=== PATIENT | male | born 1970 | race Caucasian/White ===

== ENCOUNTER 2024-12-05 14:02 | Outpatient (AMB) | payer OTHER, SELFPAY ==
--- NOTE | 2024-12-05 14:27 | A.OFFPC_ITS ---
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 Intake Note: new patient visit to establish care with pcp Reimbursement Coordinator Required: No Allergies Penicillins Adverse Reaction (Intermediate, Verified 12/05/24 14:35) Rash Medication List - Last Reconciled 12/05/24 by Uday Menendez MD sildenafil (Viagra) 25 mg PO DAILY PRN Tobacco use date assessed: 12/05/24 Dental Screening Dental Screen Date: 12/05/24 Did you have a dental visit in the last 12 months?: Yes Did you have a dental problem in the last 6 months where you did not have access to dental care?: Yes Was dental information given to patient?: No HPI 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 ?? Prior PCP:? Shanika Barry. Last office visit/CPE:? 1 yr Acute issue(s):? Kidney Stones - was at [facility] today for kiney stones. Urology Dr Manuel. ?? PMHx:? 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 SurgHx:?Gall Bladder, Urology laser & Basket for ureteral stones & history of stent FHx:?Mom: Kidney Stone, Crohns. Dad: afib, Ulcerative Colitis SocHx: Vapes, EtOH weekends 3-5 drinks. No Drugs. 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 1. Little interest or pleasure in doing things: not at all 2. Feeling down, depressed, or hopeless: not at all 3. Trouble falling or staying asleep, or sleeping too much: not at all 4. Feeling tired or having little energy: not at all 5. Poor appetite or overeating: not at all 6. Feeling bad about yourself - or that you are a failure or have let yourself or your family down: not at all 7. Trouble concentrating on things, such as reading the newspaper or watching television: not at all 8. Moving or speaking so slowly that other people could have noticed. Or the opposite - being so fidgety or restless that you have been moving around a lot more than usual: not at all 9. Thoughts that you would be better off or of hurting yourself in some way: not at all Total score: 0 Depression Screening Interpretation: Negative Depression Screening Done: Yes 20677 - PHQ-9 Billing: Yes Source: Developed by Drs. Bharat Delcid, Jaqueline Vasquez, Jeferson Malcolm and colleagues, with an educational jai from [employer]. Thrive Questionnaire Date Thrive assessed: 12/05/24 I am a: Patient What is your living situation today?: I have a steady place to live Within the past 12 months, did the food you bought not last and you didn't have the money to get more?: Never true Within the past 12 months, did you worry whether your food would run out before you got money to buy more?: Never true Do you have trouble paying for medicines?: No Do you have trouble getting transportation to medical appointments?: No Do you have trouble paying your heating and electricity bill?: No Do you have trouble taking care of your child, family member or friend?: No Do you have trouble with day-to-day activities such as bathing, preparing meals, shopping, managing finances, etc.?: No Are you currently unemployed and looking for a job?: No Are you interested in more education?: No Please select the resources that you would like help with: None Currently or been in a relationship where the following occur: No concerns reported THRIVE Score: 0 AUDIT C Alcohol Use Questionnaire (AUDIT-C) 1. How often do you have a drink containing alcohol?: 2-3 times a week 2. How many drinks containing alcohol do you have on a typical day when you are drinking?: 3 or 4 3. How often do you have six or more drinks on one occasion?: Less than monthly Total Score: 5 Score Reviewed/Action Taken: Yes CHAS-7 AMB Questionnaire CHAS-7 Date CHAS - 7 assessed: 12/05/24 Feeling nervous, anxious, or on edge: 0 = Not at all Not being able to stop or control worryin = Not at all Worrying too much about different things: 0 = Not at all Trouble relaxin = Not at all Being so restless that it is hard to sit still: 0 = Not at all Becoming easily annoyed or irritable: 0 = Not at all Feeling afraid as if something awful might happen: 0 = Not at all Total CHAS-7 score (0-4 normal; 5-9 mild; 10-14 moderate; 15-21 severe): 0 Source: Developed by Drs. Bharat Delcid, Jaqueline Vasquez, Jeferson Malcolm and colleagues, with an educational jai from [employer]. CHAS-7 Assessment Billing CHAS-7 Assessment Tool: CHAS-7 Assessment 73130 Review of Systems Const Denies chills, Denies fatigue, Denies fever(s), Denies headache(s) and Denies weakness ENT Denies dizziness and Denies headache(s) Card Denies chest pain, Denies lightheadedness, Denies dyspnea and Denies other (Palpitations) Resp Denies cough, Denies dyspnea, Denies wheezing and Denies other ( shortness of breath) Musc Denies numbness and Denies tingling Neuro Denies dizziness, Denies headache(s), Denies numbness, Denies tingling, Denies paresthesias and Denies weakness Psych Denies anxiety and Denies depression Endo Denies fatigue Aller/Immun Denies wheezing Physical exam (Primary Care) Vital Signs: Last Vital Signs Temp 98.1 F 12/05/24 14:39 Pulse 109 H 12/05/24 14:39 Resp 14 12/05/24 14:39 BP 136/90 H 12/05/24 14:39 Pulse Ox 95 12/05/24 14:39 Oxygen Delivery Method Room Air 12/05/24 14:39 BMI result Body Mass Index 39.5 Tobacco/Smoking Status: Tobacco use Status Tobacco use date assessed 12/05/24 12/05/24 14:40 Patient Tobacco Use Status Never used Tobacco 12/05/24 14:40 e-Cigarette/Vaping Use Currently Using 12/05/24 14:40 PHQ-9: PHQ-9 Score PHQ-9: Total score 0 12/05/24 14:44 Depression Screening Interpretation: Negative Thrive Assessment: Date of Thrive Assessment Date Thrive assessed 12/05/24 12/05/24 14:40 Currently or been in a relationship where the following occur: No concerns reported Const General: no acute distress and well developed Nutritional Appearance: well nourished Orientation/consciousness: patient oriented x3 HENMT Head: Yes normocephalic and Yes atraumatic Eyes General: appearance normal, both eyes and all related structures Pupils: Equal, round and reactive pupils present EOM: EOMs intact bilaterally Resp Effort & Inspection: normal respiratory effort Auscultation: clear to auscultation bilaterally Cardio Rate: regular rate Rhythm: regular rhythm Heart sounds: S1 normal heart sound present, S2 normal heart sound present, no gallops, no murmurs and no rubs Neuro General: patient oriented x3 and gait normal Cranial nerves: Yes Equal, round and reactive pupils present Psych Affect: normal affect Coding Level of Care Code New Pt Level 3 (80839) Diagnoses History of kidney stones Z87.442 Erectile dysfunction N52.9 Tachycardia R00.0 Laboratory exam ordered as part of routine general medical examination Z00.00 Additional Codes CHAS-7 Assessment Billing - CHAS-7 Assessment Tool: CHAS-7 Assessment 28919 ([id number]) PHQ-9 - 96876 - PHQ-9 Billing: Yes ([id number]) Assessment & Plan Assessment & Plan (1) History of kidney stones: Code(s): Z87.442 - Personal history of urinary calculi Category: Medical Plan: Recurrent?kidney?stones. Followed?by? - will?request?most?recent?notes Hydrate?well (2) Erectile dysfunction: Code(s): N52.9 - Male erectile dysfunction, unspecified Category: Medical Plan: Managed?with?sildenafil Continue?current?medication (3) Tachycardia: Code(s): R00.0 - Tachycardia, unspecified Category: Medical Plan: EKG: ?Normal?sinus?rhythm HR 92bpm,?normal?axis,?no?hypertrophy,?no?ST-T-wave?changes Hydrate?well Encouraged?exercise (4) Laboratory exam ordered as part of routine general medical examination: Code(s): Z00.00 - Encounter for general adult medical examination without abnormal findings Category: Medical Plan: Check?labs Orders: Orders Lipid Panel Today Z00.00 - Encounter for general adult medical examination without abnormal findings Prostate Specific Antigen Scr Today Z12.5 - Encounter for screening for malignant neoplasm of prostate TSH reflex Free T4 Today Z00.00 - Encounter for general adult medical examination without abnormal findings Comprehensive [place]. Panel Fast Today Z00.00 - Encounter for general adult medical examination without abnormal findings Microalbumin, Random (w Creat) Today I10 - Essential (primary) hypertension UA CC w/rflx Micro + Cult Today Z00.00 - Encounter for general adult medical examination without abnormal findings AMB EKG-In Office Today R00.0 - Tachycardia, unspecified
[2024-12-05 14:39] VITALS: BP 136/90; PULSE 109; RESP 14; TEMP 36.7; O2SAT 95; BMI 39.5
[2024-12-05 14:49] VITALS: BP 126/80; PULSE 102
--- OUTSIDE RECORDS SUMMARY | 2024-12-05 16:47 | XMS_ITS | Clinical Summary ---
[email or web address] [place] [address] Care Team Providers Care Cuff Matcher Name Role Phone Eduardo Barry Primary Care Provider [phone] Surgical History Surgery Date Site/Laterality Comments HAND SURGERY PROCEDURE: HISTORICAL HAND SURGERY; COMMENT: age 3, left hand missing metacarpal ANKLE SURGERY PROCEDURE: HISTORICAL ANKLE SURGERY; COMMENT: age 16 yr, right ankle screws ANKLE SURGERY PROCEDURE: HISTORICAL ANKLE SURGERY; COMMENT: age 27 yr, repeat ankle srugery OTHER SURGICAL HISTORY PROCEDURE: [place] INCISION & DRAINAGE PILONIDAL CYST COMPLICATED; COMMENT: age 18 yr MOUTH SURGERY PROCEDURE: ORAL SURGERY PROCEDURE; COMMENT: capo COLONOSCOPY 06/04/2019 PROCEDURE: HISTORICAL COLONOSCOPY; COMMENT: Solitary 3 mm erosion in the terminal ileum, otherwise completely normal, no evidence of active or old inflammatory bowel disease. UPPER GASTROINTESTINAL ENDOSCOPY 06/04/2019 PROCEDURE: [place] UPPER GI ENDOSCOPY PERFORMED; COMMENT: Normal. CHOLECYSTECTOMY 07/29/2020 PROCEDURE: [place] LAPAROSCOPY SURG CHOLECYSTECTOMY Medical History Medical History Date Comments Calculus of kidney 10/28/2006 DX:Calculus o f kidney Headache(784.0) 10/28/2006 DX:Headache(784. 0); COMMENT: negative CAT scan 1989 Sensorineural hearing loss ( SNHL) of both ears 04/02/2021 DX:Sensorineural hearing los s (SNHL) of both ears; COMMENT: Seen by Dr. Henderson - close monitoring for now Family History Medical History Relation Name Comments Arthritis Daughter RA Asthma Daughter Other: Afib Father Ulcerative colitis Father Breast cancer Maternal Grandmother Crohn's disease Mother Nephrolithiasis Mother Other: aneurysm Mother aortic Stroke Paternal Grandfather Stroke Paternal Grandmother No Known Problems Sister Ulcerative colitis Son Dharmesh Relation Name Status Comments Daughter Alive Father Alive Maternal Grandfather Maternal Grandmother (Age 83) Mother Alive Paternal Grandfather Paternal Grandmother (Age 83) Sister Alive Son Dharmesh Alive Social History Tobacco Use Types Packs/Day Years Used Date Smoking Tobacco: Former Cigarettes Q uit: 05/20/2016 Smokeless Tobacco: Never Alcohol Use Standard Drinks/Week Comments Yes 0 (1 standard drink = 0.6 oz pur e alcohol) Sex and Gender Information Value Date Recorded Sex Assigned at Not on file Legal Sex Male 2:26 PM EST Gender Identity Not on file Sexual Orientation Not on file Obstetrics History Last Filed Vital Signs Vital Sign Reading Time Taken Comments Blood Pressure 138/88 07/29/2023 4:57 PM EST L A rm Pulse 90 07/29/2023 4:57 PM EST Temperature - - Respiratory Rate - - Oxygen Saturation - - Inhaled Oxygen Concentration - - Weight 125 kg (275 lb 6.4 oz) 06/02/2023 8:08 AM EDT Height 172.7 cm (5' 8 ) 06/02/2023 8:08 AM EDT Body Mass Index 41.87 06/02/2023 8:08 AM EDT Plan of Treatment Health Maintenance Due Date Last Done Comments Hepatitis A Vaccines (1 of 2 - Risk 2-dose series) 1988 Hepatitis B Vaccines (1 of 3 - 19+ 3-dose series) 1988 Pneumococcal Vaccine: 50+ Years (1 of 1 - PCV) 2019 Zoster Vaccines (1 of 2) 2019 Cholesterol Screening (Lipid Panel) 07/31/2022 Colorectal Cancer Screening: Colonoscopy 07/31/2022 Depression Screening 07/31/2022 HIV Screening 07/31/2022 Hepatitis C Screening 07/31/2022 Social Influencers of Health Screening 07/31/2022 COVID-19 Vaccine (3 - 2023-2 5 season) 2024 10/22/2020, 10/01/2020 Influenza Vaccine (Season Ended) 2025 05/16/2020, 06/30/2019, 08/30/2018 DTaP,Tdap,and Td Vaccines (3 - Td or Tdap) 03/17/2031 03/17/2021, 01/13/2010 HIB Vaccines Aged Out No longer eligi ble based on patient's age to complete this topic HPV Vaccines Aged Out No longer eligi ble based on patient's age to complete this topic IPV Vaccines Aged Out No longer eligi ble based on patient's age to complete this topic MMR Vaccines Aged Out No longer eligi ble based on patient's age to complete this topic Meningococcal ACWY Vaccine Aged Out N o longer eligible based on patient's age to complete this topic Meningococcal B Vaccine Aged Out No l onger eligible based on patient's age to complete this topic Pneumococcal Vaccine: Pediatrics (0 to 5 Years) and At-Risk Patients (6 to 64 Years) Aged Out No longer eligible b ased on patient's age to complete this topic RSV Immunization Patients Under 20 months Aged Out No longer eligible b ased on patient's age to complete this topic Varicella Vaccines Aged Out No longer eligible based on patient's age to complete this topic Care Teams Cuff Matcher Relationship Specialty Start Date End Date Eduardo Barry DO PCP - General Internal Medicine 07/30/21
== END 2024-12-05 15:27 | disposition home or self-care (01) ==
LOC: HO.HMCFM 14:02
PROVIDERS: PCP Family Medicine; Visit Provider Family Medicine
DX: Z87.442 Personal history of urinary calculi (principal); N52.9 Male erectile dysfunction, unspecified; R00.0 Tachycardia, unspecified; Z00.00 Encounter for general adult medical examination without abnormal findings

== ENCOUNTER → 2024-12-05 14:02 | Outpatient (BNVA) | payer OTHER, SELFPAY | PROVIDERS: PCP Family Medicine; Visit Provider Family Medicine | DX: N52.9 Male erectile dysfunction, unspecified (principal); R00.0 Tachycardia, unspecified; Z87.442 Personal history of urinary calculi; Z79.899 Other long term (current) drug therapy | CPT/HCPCS: 96127 ==

== ENCOUNTER 2025-03-07 07:38 | Outpatient (REF) | payer OTHER, SELFPAY ==
--- OUTSIDE RECORDS SUMMARY | 2025-03-07 07:40 | XMS_ITS | Clinical Summary ---
[facility] [place] [address] Care Team Providers Care Bottle Tester Name Role Phone Eduardo Barry Primary Care Provider [phone] Surgical History Surgery Date Site/Laterality Comments HAND SURGERY PROCEDURE: HISTORICAL HAND SURGERY; COMMENT: age 3, left hand missing metacarpal ANKLE SURGERY PROCEDURE: HISTORICAL ANKLE SURGERY; COMMENT: age 16 yr, right ankle screws ANKLE SURGERY PROCEDURE: HISTORICAL ANKLE SURGERY; COMMENT: age 27 yr, repeat ankle srugery OTHER SURGICAL HISTORY PROCEDURE: [place] INCISION & DRAINAGE PILONIDAL CYST COMPLICATED; COMMENT: age 18 yr MOUTH SURGERY PROCEDURE: ORAL SURGERY PROCEDURE; COMMENT: capo COLONOSCOPY 06/04/2019 PROCEDURE: HISTORICAL COLONOSCOPY; COMMENT: Solitary 3 mm erosion in the terminal ileum, otherwise completely normal, no evidence of active or old inflammatory bowel disease. UPPER GASTROINTESTINAL ENDOSCOPY 06/04/2019 PROCEDURE: MD UPPER GI ENDOSCOPY PERFORMED; COMMENT: Normal. CHOLECYSTECTOMY 07/29/2020 PROCEDURE: MD LAPAROSCOPY SURG CHOLECYSTECTOMY Medical History Medical History [...] 5 season) 2024 10/22/2020, 10/01/2020 Influenza Vaccine (#1) 2025 , 06/30/2019, 08/30/2018 DTaP,Tdap,and Td Vaccines (3 - [...] age to complete this topic Care Teams Bottle Tester Relationship Specialty Start Date End Date Eduardo Barry DO PCP - General Internal Medicine 07/30/21
[2025-03-07 11:32] LABS: Alanine Aminotransferase 29 U/L (0-40); Albumin Level 4.3 g/dL (3.5-5.0); Alkaline Phosphatase 62 U/L (39-117); Anion Gap 11 (12-20); Aspartate Amino Transferase 24 U/L (5-37); Blood Urea Nitrogen 13 mg/dL (9-16); Calcium 8.9 mg/dL (8.4-10.2); Carbon Dioxide 25 mmol/L (22-29); Chloride 109 mmol/L (96-108); Cholesterol 158 mg/dL (<200); Estimated Glomerular Filt Rate > 60; HDL Cholesterol 35 mg/dL (>40); Potassium 3.9 mmol/L (3.3-5.1); Sodium 141 mmol/L (135-145); Total Protein 6.4 g/dL (6.5-8.0); Triglycerides 189 mg/dL (<150)
[2025-03-07 11:52] LABS: Appearance Urine Clear; Glucose Urine UA Negative (Negative); PH 6.5 (5.0-9.0); Specific Gravity - Urine 1.025 (1.005-1.025)
[2025-03-07 12:06] LABS: Microalbum/Creatinine Ratio Ur 5.9 ug/mg cr (<30)
== END 2025-03-07 07:39 | disposition home or self-care (01) ==
LOC: HO.WFDLDS 07:38
PROVIDERS: Visit Provider Family Medicine
DX: Z00.00 Encounter for general adult medical examination without abnormal findings (principal); Z12.5 Encounter for screening for malignant neoplasm of prostate; I10 Essential (primary) hypertension
CPT/HCPCS: 36415; 80053; 80061; 81003; 82043; 82570; 84153; 84443

== ENCOUNTER 2025-04-15 13:50 | Outpatient (AMB) | payer OTHER, SELFPAY ==
--- NOTE | 2025-04-15 14:01 | A.OFFPC_ITS ---
Vital Signs 04/15/25 14:02 Height 5 ft 8 in Weight 251 lb 2 oz BMI 38.2 BP 138/90 H Blood Pressure Location Rt brachial Position Sitting Pulse 106 H Pulse Source Pulse Oximeter Pulse Oximetry (%) 96 Oxygen Delivery Method Room Air Intake Visit Reasons: CPE with f/u labs and health maint. Allergies Penicillins Adverse Reaction (Intermediate, Verified 04/15/25 14:06) Rash Medication List - Last Reconciled 04/15/25 by Uday Menendez MD sildenafil (Viagra) 25 mg PO DAILY PRN Tobacco use date assessed: 04/15/25 Dental Screening Dental Screen Date: 04/15/25 Did you have a dental visit in the last 12 months?: Yes Did you have a dental problem in the last 6 months where you did not have access to dental care?: No Was dental information given to patient?: Patient has dentist HPI CPE with f/u labs and health maint. HPI Details 54 y/o male presents for a CPE with f/u labs and health maint. Labs drawn 03/07/25. Reviewed labs with pt. Fasting glucose 151. Triglycerides 189. TC 158. LDL 86. HDL low at 35. PSA 1.29. A1c today 7.4%. No prior diagnosis of diabetes. Hx of gallstone pancreatitis, cholelithiasis. 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 1. Little interest or pleasure in doing things: not at all 2. Feeling down, depressed, or hopeless: not at all 3. Trouble falling or staying asleep, or sleeping too much: not at all 4. Feeling tired or having little energy: not at all 5. Poor appetite or overeating: not at all 6. Feeling bad about yourself - or that you are a failure or have let yourself or your family down: not at all 7. Trouble concentrating on things, such as reading the newspaper or watching television: not at all 8. Moving or speaking so slowly that other people could have noticed. Or the opposite - being so fidgety or restless that you have been moving around a lot more than usual: not at all 9. Thoughts that you would be better off or of hurting yourself in some way: not at all Total score: 0 Depression Screening Interpretation: Negative Depression Screening Done: Yes Source: Developed by Drs. Bharat Delcid, Jaqueline Vasquez, Jeferson Malcolm and colleagues, with an educational jai from [employer]. Thrive Questionnaire Date Thrive assessed: 11/28/24 I am a: Patient What is your living situation today?: I have a steady place to live Within the past 12 months, did the food you bought not last and you didn't have the money to get more?: Never true Within the past 12 months, did you worry whether your food would run out before you got money to buy more?: Never true Do you have trouble paying for medicines?: No Do you have trouble getting transportation to medical appointments?: No Do you have trouble paying your heating and electricity bill?: No Do you have trouble taking care of your child, family member or friend?: No Do you have trouble with day-to-day activities such as bathing, preparing meals, shopping, managing finances, etc.?: No Are you currently unemployed and looking for a job?: No Are you interested in more education?: No Please select the resources that you would like help with: None Currently or been in a relationship where the following occur: No concerns reported THRIVE Score: 0 AUDIT C Alcohol Use Questionnaire (AUDIT-C) 1. How often do you have a drink containing alcohol?: 2-3 times a week 2. How many drinks containing alcohol do you have on a typical day when you are drinking?: 3 or 4 3. How often do you have six or more drinks on one occasion?: Less than monthly Total Score: 5 CHAS-7 AMB Questionnaire CHAS-7 Date CHAS - 7 assessed: 12/05/24 Feeling nervous, anxious, or on edge: 0 = Not at all Not being able to stop or control worryin = Not at all Worrying too much about different things: 0 = Not at all Trouble relaxin = Not at all Being so restless that it is hard to sit still: 0 = Not at all Becoming easily annoyed or irritable: 0 = Not at all Feeling afraid as if something awful might happen: 0 = Not at all Total CHAS-7 score (0-4 normal; 5-9 mild; 10-14 moderate; 15-21 severe): 0 Source: Developed by Drs. Bharat Delcid, Jaqueline Vasquez, Jeferson Malcolm and colleagues, with an educational jai from [employer]. Review of Systems Const Denies chills, Denies fatigue, Denies fever(s), Denies headache(s) and Denies weakness Eyes Denies change in vision ENT Denies dizziness, Denies headache(s), Denies hearing loss, Denies nasal congestion, Denies sinus pain, Denies sinus pressure and Denies sore throat Card Denies chest pain, Denies lightheadedness, Denies dyspnea and Denies other (palpitations) Resp Denies cough, Denies dyspnea and Denies wheezing GI Denies abdominal pain, Denies melena, Denies hematochezia, Denies change in bowel habits, Denies dyspepsia and Denies nausea Denies hematuria and Denies dysuria Musc Denies abnormal gait, Denies myalgias, Denies arthralgias, Denies numbness and Denies tingling Skin/Breast Denies rash, Denies unusual bruising and Denies wounds Neuro Denies abnormal gait, Denies dizziness, Denies headache(s), Denies memory loss, Denies numbness, Denies Sensory deficit (Neuro), Denies tingling and Denies weakness Psych Denies anxiety, Denies depression and Denies memory loss Endo Denies cold intolerance, Denies fatigue, Denies heat intolerance, Denies polydipsia and Denies polyuria Dennis/Lymph Denies easy bleeding and Denies easy bruising Aller/Immun Denies wheezing Physical exam (Primary Care) Vital Signs: Last Vital Signs Pulse 106 H 04/15/25 14:02 BP 138/90 H 04/15/25 14:02 Pulse Ox 96 04/15/25 14:02 Oxygen Delivery Method Room Air 04/15/25 14:02 BMI result Body Mass Index 38.2 Tobacco/Smoking Status: Tobacco use Status Tobacco use date assessed 04/15/25 04/15/25 14:08 Patient Tobacco Use Status Never used Tobacco 04/15/25 14:08 e-Cigarette/Vaping Use Currently Using 04/15/25 14:08 PHQ-9: PHQ-9 Score PHQ-9: Total score 0 04/15/25 14:52 Depression Screening Interpretation: Negative Thrive Assessment: Date of Thrive Assessment Date Thrive assessed 11/28/24 04/15/25 14:08 Currently or been in a relationship where the following occur: No concerns reported Const General: no acute distress, well developed, alert and awake Nutritional Appearance: well nourished Orientation/consciousness: patient oriented x3 HENMT Head: Yes normocephalic and Yes atraumatic Ears: hearing grossly normal bilaterally and TM's normal bilaterally General nose exam: Normal external nose present and Normal nares present Mouth: Normal oral and palatal mucosa present and moist mucous membranes Teeth and gingiva: dentition normal Throat: Yes posterior oropharynx normal Eyes General: appearance normal, both eyes and all related structures Pupils: Equal, round and reactive pupils present and Pupil accommodation reflex normal EOM: EOMs intact bilaterally Neck Neck: Yes normal visual inspection, Yes no lymphadenopathy and Yes trachea midline Thyroid: Thyroid normal Carotids: no bruits Lymphatic: no lymphadenopathy noted Chest Chest palpation & inspection: normal inspection of the chest Resp Effort & Inspection: normal respiratory effort Auscultation: clear to auscultation bilaterally Cardio Rate: regular rate Rhythm: regular rhythm Heart sounds: S1 normal heart sound present, S2 normal heart sound present, no gallops, no murmurs and no rubs Bruits: no abdominal aortic bruits and no carotid bruits GI Palpation (GI): No Abdominal aortic bruit present, Soft to palpation, nontender, No hepatosplenomegaly present and No Rebound tenderness present Auscultation: normal bowel sounds General: Yes no CVA tenderness Back/Spine/Pelvis Back: no CVA tenderness Cervical Spine: cervical ROM normal and No Cervical spine tenderness Thoracic/Lumbar Spine: thoraco-lumbar ROM normal, No pain with thoraco-lumbar ROM, No thoracic spinal tenderness and No lumbar spinal tenderness Skin Lesions: no lesions Rashes: no rashes Trauma: no lacerations or abrasions Wounds: no wounds Nails: normal Neuro General: patient oriented x3 Cranial nerves: Yes Equal, round and reactive pupils present Cognition (Neuro): normal cognition Gait exam (Neuro): Normal gait present Motor exam (neuro): 5/5 motor strength present throughout Sensory Exam: No Sensory deficit (Neuro) Deep tendon reflexes (DTR's): Right patellar reflex intensity grade: 2+ and Left patellar reflex intensity grade: 2+ Extrem General: Yes normal to inspection and No edema Psych Appearance: grossly normal Affect: normal affect Attitude: cooperative Thought process: Normal thought process present Results AMB Hemoglobin A1c AMB Hemoglobin A1c 7.4 % Last Edit by Qian Lake CMA on 04/15/25 15:00 Coding Level of Care Code Est Pt Level 3 (03292) Est Pt Prev Care 40-64y(59440) Diagnoses Adult general medical exam Z00.00 Low HDL (under 40) E78.6 Diabetes E11.9 Screening for colon cancer Z12.11 Screening for prostate cancer Z12.5 Assessment & Plan Assessment & Plan (1) Adult general medical exam: Code(s): Z00.00 - Encounter for general adult medical examination without abnormal findings Category: Medical Plan: 54-year-old man presents for complete physical exam Encouraged healthy diet with active lifestyle and plenty of exercise (2) Low HDL (under 40): Code(s): E78.6 - Lipoprotein deficiency Category: Medical Plan: Encouraged increased exercise (3) Diabetes: Code(s): E11.9 - Type 2 diabetes mellitus without complications Category: Medical Plan: New diagnosis of diabetes. Patient has a history of cholelithiasis and gallstone pancreatitis Start metformin Watch sugars and starches in diet-will refer to nurse navigator for diabetic teaching Will recheck A1c at next visit Referred to ophthalmology (4) Screening for colon cancer: Code(s): Z12.11 - Encounter for screening for malignant neoplasm of colon Category: Medical Plan: Patient says he had a colonoscopy recently with [facility] and was told to follow-up in 10 years Will request report (5) Screening for prostate cancer: Code(s): Z12.5 - Encounter for screening for malignant neoplasm of prostate Category: Medical Plan: PSA is within Normal range Will continue annual screening Orders: Orders AMB Hemoglobin A1c Today Z13.9 - Encounter for screening, unspecified Comprehensive [place]. Panel Fast Today Z00.00 - Encounter for general adult medical examination without abnormal findings Lipid Panel Today Z00.00 - Encounter for general adult medical examination without abnormal findings Hemoglobin A1c Today R73.01 - Impaired fasting glucose Referrals Ophthalmology Referral E11.9 - Type 2 diabetes mellitus without complications Nurse Navigator Referral E11.9 - Type 2 diabetes mellitus without complications Medications: New metformin 500 mg PO DAILY 90 tabs 2RF 90 days
[2025-04-15 14:02] VITALS: BP 138/90; PULSE 106; O2SAT 96; BMI 38.2
--- OUTSIDE RECORDS SUMMARY | 2025-04-15 15:11 | XMS_ITS | Clinical Summary ---
Author Organization [facility] Address [address] [place] [address] Phone Care Team Providers Care Cardiac Cath Technician Name Role Phone Pcp, Unknown Primary Care Provider Unavailabl e Allergies Active Allergy Reactions Criticality Noted Date Comments Penicillins Rash Low 08/31/2024 Medications tamsulosin (FLOMAX) 0.4 mg Cap Take 0.4 mg by mouth nightly at bedtime. 4 Active sulfamethoxazol e-trimethoprim (BACTRIM DS) 800-160 mg per tablet Take 1 tablet by mouth 2 (two) times a day. 4 Active phenazopyridine (PYRIDIUM) 200 MG tablet TAKE 1 TABLET BY MOUTH 3 TIMES A DAY NEEDED FOR DYSURIA 4 Active oxyCODONE 5 MG immediate release tablet Take 5 mg by mouth every 6 (six) hours as needed. 4 Active oxyBUTYnin (DITROPAN) 5 MG tablet TAKE ONE TABLET 3 TIMES A DAY NEEDED FOR MUSCLE SPASMS 4 Active fluticasone propionate (FLONASE) 50 mcg/actuation nasal spray 1 spray by Nasal route daily. Active sildenafil citrate (VIAGRA ORAL) Take by mouth. Activ e methylPREDNISol one (MEDROL DOSEPACK) 4 mg tablet follow package directions 21 tablet 5 Active Active Problems No known active problems Social History Tobacco Use Types Packs/Day Years Used Date Smoking Tobacco: Former Cigarettes Smokeless Tobacco: Never Tobacco Cessation:Counseling Given: Not Answered Education Answer Date Recorded Are you interested in more education? Not on yoselyn e 12/18/2022 Are you concerned about learning? Not on file 12/18/2022 No 12/18/2022 No 12/18/2022 Digital Access Answer Date Recorded No 01/16/2023 No 01/16/2023 Reliable internet access at home? Not on file 01/16/2023 Device with a working camera? Not on file Sex and Gender Information Value Date Recorded Sex Assigned at Not on file Legal Sex Male 2:02 PM EDT Gender Identity Not on file Sexual Orientation Not on file Last Filed Vital Signs Vital Sign Reading Time Taken Comments Blood Pressure 132/91 08/31/2024 12:09 PM EST Pulse 86 08/31/2024 12:09 PM EST Temperature 36.6 C (97.9 F) 08/31/2024 12:09 PM EST Respiratory Rate 20 08/31/2024 12:09 PM EST Oxygen Saturation 98% 08/31/2024 12:09 PM EST Inhaled Oxygen Concentration - - Weight - - Height - - Body Mass Index - - Plan of Treatment Health Maintenance Due Date Last Done Comments LIPID PANEL 1969 DEPRESSION SCREENING 1981 SMOKING Hx and SMOKELESS TOBACCO SCREENING 1982 HEPATITIS C SCREENING 1987 HIV ONE-TIME SCREENING (18-6 5 YEARS) 1987 COLOGUARD 2014 COLONOSCOPY 2014 COLORECTAL CANCER SCREENING 2014 FIT TEST 2014 FOBT 2014 SIGMOIDOSCOPY 2014 VIRTUAL COLONOSCOPY 2014 PNEUMOCOCCAL VACCINES (50+ years) (1 of 1 - PCV) 2019 ZOSTER VACCINES (1 of 2) 2019 COVID-19 VACCINE (3 - 2023-2 5 season) 2024 10/22/2020, 10/01/2020 INFLUENZA VACCINE (#1) 2025 , 06/30/2019, 08/30/2018 Adult Td,Tdap Booster 03/17/2031 03/17/2021 , 01/13/2010 HEPATITIS A VACCINES Aged Out No long er eligible based on patient's age to complete this topic HIB VACCINES Aged Out No longer eligi ble based on patient's age to complete this topic MENINGOCOCCAL VACCINES (ACWY) Aged Out No longer eligible based on patient's age to complete this topic MENINGOCOCCAL VACCINES (B) Aged Out N o longer eligible based on patient's age to complete this topic Medical Devices Not on file Insurance [facility] Address: [address] [facility] POS [facility] Address: [address] [facility] [place] [address] [place] [address] HMO [facility] HMO [facility] HMO [facility] [place] [address] [place] [address] [place], [place] [id number] Member Subscriber Plan / Payer (Ef fective 2021-) Name:Yonatan James Relation to Subscriber:Self Name:Yonatan James Payer ID:Not on file Type:HMO Address: [address] POS HMO Member Subscriber Plan / Payer (Ef fective 2021-Present) Name:Yonatan James Relation to Subscriber:Self Name:Yonatan James Payer ID:Not on file Type:O Address: [address] POS O Member Subscriber Plan / Payer (Ef fective 2021-Present) Name:Yonatan James Relation to Subscriber:Self Name:Yonatan James Payer ID:Not on file Type:O Address: [address] POS Care Teams Cardiac Cath Technician Relationship Specialty Start Date End Date Pcp, Unknown PCP - General 05/27/22 Additional Source Comments The information contained in this document represents components of the legal health record. It is not the complete legal health record.[facility]
--- OUTSIDE RECORDS SUMMARY | 2025-04-15 15:11 | XMS_ITS | Clinical Summary ---
Author Organization [facility] [place] [address] Care Team Providers Care Windows Server Engineer Name Role Phone Eduardo Barry Primary Care Provider [phone] Surgical History Surgery Date Site/Laterality Comments HAND [...] Panel) 07/31/2022 Colorectal Cancer Screening: Colonoscopy 07/31/2022 HIV Screening 07/31/2022 Hepatitis C Screening 07/31/2022 Social Influencers of Health Screening 07/31/2022 COVID-19 Vaccine (3 - 2023-2 5 season) 2024 10/22/2020, 10/01/2020 Depression Screening 08/22/2024 Influenza Vaccine (#1) 2025 , 06/30/2019, 08/30/2018 [...] age to complete this topic Care Teams Windows Server Engineer Relationship Specialty Start Date End Date Eduardo Barry DO PCP - General Internal Medicine 07/30/21
--- OUTSIDE RECORDS SUMMARY | 2025-04-15 15:11 | XMS_ITS ---
Author Name [facility] Organization Unknown Care Team Organization Name Specialty Phone Email Start Date End Da te [facility] Brandi Lopez Primary Care 06/29/2022 4
== END 2025-04-15 15:14 | disposition home or self-care (01) ==
LOC: HO.HMCFM 13:51
PROVIDERS: PCP Family Medicine; Visit Provider Family Medicine
DX: Z00.00 Encounter for general adult medical examination without abnormal findings (principal); E78.6 Lipoprotein deficiency; E11.9 Type 2 diabetes mellitus without complications; Z12.11 Encounter for screening for malignant neoplasm of colon; Z12.5 Encounter for screening for malignant neoplasm of prostate

== ENCOUNTER → 2025-04-15 13:50 | Outpatient (BNVA) | payer OTHER, SELFPAY | PROVIDERS: PCP Family Medicine; Visit Provider Family Medicine | DX: Z00.00 Encounter for general adult medical examination without abnormal findings (principal); E78.6 Lipoprotein deficiency; E11.9 Type 2 diabetes mellitus without complications | CPT/HCPCS: 83036; 96127 ==

== ENCOUNTER 2025-06-17 14:18 | Outpatient (AMB) | payer OTHER, SELFPAY ==
--- NOTE | 2025-06-17 14:21 | A.OFFPC_ITS ---
Vital Signs 06/17/25 14:26 Height 5 ft 8 in Weight 249 lb 4 oz BMI 37.9 BP 136/75 Blood Pressure Location Lt brachial Position Sitting Pulse 90 Pulse Source Pulse Oximeter Temp 98.1 F Temp Source Oral Pulse Oximetry (%) 97 Oxygen Delivery Method Room Air Intake Visit Reasons: f/u diabetes Intake Note: Diabetes follow up. CT 05/20/2025 ordered by Urologist. Allergies Penicillins Adverse Reaction (Intermediate, Verified 06/17/25 14:26) Rash Medication List - Last Reconciled 06/17/25 by Uday Menendez MD metformin 500 mg PO DAILY 90 days sildenafil (Viagra) 25 mg PO DAILY PRN Tobacco use date assessed: 06/17/25 Dental Screening Dental Screen Date: 04/15/25 HPI f/u diabetes HPI Details 54 y/o male presents to f/u diabetes. Prior A1c 7.4%. A1c today 06/17/25 is 6.0%. He is on metformin 500mg daily. He notes he is tolerating metformin well. 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[employer] Current occupational exposures/hazards: No Cognitive needs: No Hearing needs: Yes (otc hearing aids) Vision needs: Yes (reading) Questionnaire Thrive Questionnaire Date Thrive assessed: 11/28/24 I am a: Patient What is your living situation today?: I have a steady place to live Within the past 12 months, did the food you bought not last and you didn't have the money to get more?: Never true Within the past 12 months, did you worry whether your food would run out before you got money to buy more?: Never true Do you have trouble paying for medicines?: No Do you have trouble getting transportation to medical appointments?: No Do you have trouble paying your heating and electricity bill?: No Do you have trouble taking care of your child, family member or friend?: No Do you have trouble with day-to-day activities such as bathing, preparing meals, shopping, managing finances, etc.?: No Are you currently unemployed and looking for a job?: No Are you interested in more education?: No Please select the resources that you would like help with: None Currently or been in a relationship where the following occur: No concerns reported THRIVE Score: 0 AUDIT C Alcohol Use Questionnaire (AUDIT-C) 1. How often do you have a drink containing alcohol?: 2-4 times a month 2. How many drinks containing alcohol do you have on a typical day when you are drinking?: 3 or 4 3. How often do you have six or more drinks on one occasion?: Never Total Score: 3 CHAS-7 AMB Questionnaire CHAS-7 Date CHAS - 7 assessed: 12/05/24 Source: Developed by Drs. Bharat Delcid, Jaqueline Vasquez, Jeferson Malcolm and colleagues, with an educational jai from [employer]. Review of Systems Const Denies chills, Denies fatigue, Denies fever(s), Denies headache(s) and Denies weakness ENT Denies dizziness and Denies headache(s) Card Denies dyspnea Resp Denies cough, Denies dyspnea, Denies wheezing and Denies other (shortness of breath) Musc Denies numbness and Denies tingling Neuro Denies dizziness, Denies headache(s), Denies numbness, Denies tingling and Denies weakness Psych Denies anxiety and Denies depression Endo Denies fatigue Aller/Immun Denies wheezing Physical exam (Primary Care) Vital Signs: Last Vital Signs Temp 98.1 F 06/17/25 14:26 Pulse 90 06/17/25 14:26 BP 136/75 06/17/25 14:26 Pulse Ox 97 06/17/25 14:26 Oxygen Delivery Method Room Air 06/17/25 14:26 BMI result Body Mass Index 37.9 Tobacco/Smoking Status: Tobacco use Status Tobacco use date assessed 06/17/25 06/17/25 14:31 Patient Tobacco Use Status Never used Tobacco 06/17/25 14:52 e-Cigarette/Vaping Use Currently Using 06/17/25 14:52 Thrive Assessment: Date of Thrive Assessment Date Thrive assessed 11/28/24 06/17/25 14:22 Currently or been in a relationship where the following occur: No concerns reported Const General: well developed; No acute distress Nutritional Appearance: well nourished Orientation/consciousness: patient oriented x3 [facility] Head: Yes normocephalic and Yes atraumatic Eyes General: appearance normal, both eyes and all related structures Pupils: Equal, round and reactive pupils present EOM: EOMs intact bilaterally Resp Effort & Inspection: normal respiratory effort Auscultation: clear to auscultation bilaterally Cardio Rate: regular rate Rhythm: regular rhythm Heart sounds: S1 normal heart sound present, S2 normal heart sound present, no gallops, no murmurs and no rubs Neuro General: patient oriented x3 and gait normal Cranial nerves: Yes Equal, round and reactive pupils present Psych Affect: normal affect Results AMB Hemoglobin A1c AMB Hemoglobin A1c 6.0 % Last Edit by Katherine Hanson CMA on 06/17/25 14:52 Results Reviewed Results Reviewed: Laboratory Last Values Hgb A1c (Clinic) 6.0 % (4.0-6.0) 06/17/25 14:52 Coding Level of Care Code Est Pt Level 3 (21020) Diagnoses Diabetes E11.9 Assessment & Plan Assessment & Plan (1) Diabetes: Code(s): E11.9 - Type 2 diabetes mellitus without complications Category: Medical Plan: Patient returns to follow-up diabetes A1c now 6.0%. Good control. Goal is less than 7.0% Continue current medication which he is tolerating; metformin 500 mg daily Continue diabetic diet He has not been contacted by the nurse navigator for diabetic teaching yet and I will ask them to reach out again He has an appointment with Ophthalmology for a diabetic retinal exam and he have them forward the note when completed. Orders: Orders AMB Hemoglobin A1c Today E11.9 - Type 2 diabetes mellitus without complications
[2025-06-17 14:26] VITALS: BP 136/75; PULSE 90; TEMP 36.7; O2SAT 97; BMI 37.9
--- OUTSIDE RECORDS SUMMARY | 2025-06-17 17:55 | XMS_ITS | Clinical Summary ---
Author Organization [facility] [place] [address] Care Team Providers Care Quart[employer] Miner Name Role Phone Eduardo Barry Primary Care Provider [phone] Surgical History Surgery Date Site/Laterality Comments HAND SURGERY PROCEDURE: HISTORICAL HAND SURGERY; COMMENT: age 3, left hand missing metacarpal ANKLE SURGERY PROCEDURE: HISTORICAL ANKLE SURGERY; COMMENT: age 16 yr, right ankle screws ANKLE SURGERY PROCEDURE: HISTORICAL ANKLE SURGERY; COMMENT: age 27 yr, repeat ankle srugery OTHER SURGICAL HISTORY PROCEDURE: GA INCISION & DRAINAGE PILONIDAL CYST COMPLICATED; COMMENT: age 18 yr MOUTH SURGERY PROCEDURE: ORAL SURGERY PROCEDURE; COMMENT: capo COLONOSCOPY 06/04/2019 PROCEDURE: HISTORICAL COLONOSCOPY; COMMENT: Solitary 3 mm erosion in the terminal ileum, otherwise completely normal, no evidence of active or old inflammatory bowel disease. UPPER GASTROINTESTINAL ENDOSCOPY 06/04/2019 PROCEDURE: GA UPPER GI ENDOSCOPY PERFORMED; COMMENT: Normal. CHOLECYSTECTOMY 07/29/2020 PROCEDURE: GA LAPAROSCOPY SURG CHOLECYSTECTOMY Medical History Medical History [...] Health Maintenance Due Date Last Done Comments Colorectal Cancer Screening: Colonoscopy 1969 Hepatitis A Vaccines (1 of 2 - Risk 2-dose series) 1988 Hepatitis B Vaccines (1 of 3 - 19+ 3-dose series) 1988 Pneumococcal Vaccine: 50+ Years (1 of 1 - PCV) 2019 RSV Immunization Adult Patients (1 - Risk 50-74 years 1-dose series) 2019 Zoster Vaccines (1 of 2) 2019 Cholesterol Screening (Lipid Panel) 07/31/2022 HIV Screening 07/31/2022 Hepatitis C Screening 07/31/2022 Social Influencers of Health Screening 07/31/2022 Depression Screening 08/22/2024 COVID-19 Vaccine (3 - 2024-2 6 season) 2025 10/22/2020, 10/01/2020 Influenza Vaccine (#1) 2025 , [...] age to complete this topic Care Teams Quart[employer]er Relationship Specialty Start Date End Date Eduardo Barry DO PCP - General Internal Medicine 07/30/21
--- OUTSIDE RECORDS SUMMARY | 2025-06-17 17:55 | XMS_ITS | Clinical Summary ---
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 Name Role Phone Pcp, Unknown Primary Care [...] 2019 ZOSTER VACCINES (1 of 2) 2019 INFLUENZA VACCINE (#1) 2025 , 06/30/2019, 08/30/2018 COVID-19 VACCINE (3 - 2024-2 6 season) 2025 10/22/2020, 10/01/2020 Adult Td,Tdap Booster 03/17/2031 03/17/2021 , 01/13/2010 RSV VACCINE (1 - 1-dose 75+ series) 2044 HEPATITIS A VACCINES Aged Out No long [...] topic Medical Devices Not on file Insurance [facility] Address: [address] [place] [facility] Address[facility] [address] [facility] [address] [place] [address] [employer] [facility] Address: [address] [address] [facility] [employer] Care Teams Gallery [employer] Museum 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 It is not the complete legal health record.[facility]
== END 2025-06-17 15:08 | disposition home or self-care (01) ==
LOC: HO.HMCFM 14:18
PROVIDERS: PCP Family Medicine; Visit Provider Family Medicine
DX: E11.9 Type 2 diabetes mellitus without complications (principal)

== ENCOUNTER → 2025-06-17 14:18 | Outpatient (BNVA) | payer OTHER, SELFPAY | PROVIDERS: PCP Family Medicine; Visit Provider Family Medicine | DX: E11.9 Type 2 diabetes mellitus without complications (principal); Z79.84 Long term (current) use of oral hypoglycemic drugs | CPT/HCPCS: 83036 ==